=== PATIENT | male | born 1965 | race Caucasian/White ===

== ENCOUNTER → 2017-01-20 | Outpatient (CLI) | payer MEDICAID | LOC: BRMIMAGING 11:24 | PROVIDERS: ATTEND Family Medicine | DX: M77.31 Calcaneal spur, right foot (principal) | CPT/HCPCS: 73630-PO; 93971-PO ==

== ENCOUNTER → 2017-12-15 | Outpatient (CLI) | payer MEDICAID | LOC: BRMIMAGING 13:42 | PROVIDERS: ATTEND Family Medicine | DX: I82.411 Acute embolism and thrombosis of right femoral vein (principal) | CPT/HCPCS: 93971-PO ==

== ENCOUNTER → 2018-11-11 | Outpatient (CLI) | payer MEDICAID | LOC: BRMIMAGING 10:51 | PROVIDERS: ATTEND Family Medicine | DX: I80.11 Phlebitis and thrombophlebitis of right femoral vein (principal) | CPT/HCPCS: 93971-PO ==